=== PATIENT | female | born 1970 | race Two or more races ===

== ENCOUNTER 2018-09-26 06:59 | Day surgery (SDC) | payer OTHER ==
[~2018-09-26 06:59] MED LIST: SYNTHROID100 MCG PO; TRAMADOL HCL50 MG PO; TRIPLE ANTIBIOT15 GM TP
== END 2018-09-26 16:00 | disposition home or self-care (01) ==
LOC: CIR.AMB 06:59
DX: D17.1 Benign lipomatous neoplasm of skin and subcutaneous tissue of trunk (principal)

== ENCOUNTER 2019-05-08 18:50 | Emergency (ER) | payer OTHER ==
[~2019-05-08] VITALS: Ht 160 cm; Wt 62.6 kg
[2019-05-09] MEDS ORDERED: ZOFRAN4 MG PO (02:04)
[2019-05-09] MEDS ORDERED: PEPCID40 MG PO (02:04)
[2019-05-09] MEDS ORDERED: INTESTINEX680 M1 PO (02:04)
== END 2019-05-09 02:11 ==
LOC: ER 18:50
DX: K52.89 Other specified noninfective gastroenteritis and colitis (principal); R11.10 Vomiting, unspecified

== ENCOUNTER 2019-09-23 23:31 | Emergency (ER) | payer OTHER ==
[~2019-09-23] VITALS: Ht 157.5 cm; Wt 61.2 kg
[~2019-09-23 23:31] MED LIST changes: +INTESTINEX680 M1 PO; +PEPCID40 MG PO; +ZOFRAN4 MG PO
[2019-09-24] MEDS ORDERED: PEPCID40 MG PO (06:26)
[2019-09-24] MEDS ORDERED: PHENERGAN25 MG PO (06:26)
== END 2019-09-24 06:36 | disposition home or self-care (01) ==
LOC: ER 23:31
DX: K29.60 Other gastritis without bleeding (principal)

== ENCOUNTER 2022-08-31 08:37 | Outpatient (CLI) | payer OTHER ==
[~2022-08-31 08:37] MED LIST changes: +PHENERGAN25 MG PO
== END 2022-08-31 08:39 | disposition home or self-care (01) ==
LOC: MAMO-SONO 08:37
PROVIDERS: ATTEND Obstetrics & Gynecology
DX: N63.0 Unspecified lump in unspecified breast (principal); N64.59 Other signs and symptoms in breast; N64.9 Disorder of breast, unspecified; N94.89 Other specified conditions associated with female genital organs and menstrual cycle; R10.2 Pelvic and perineal pain; N94.0 Mittelschmerz

== ENCOUNTER 2023-09-29 10:04 | Outpatient (CLI) | payer OTHER | END 2023-09-29 10:15 | disposition home or self-care (01) | LOC: MAMO-SONO 10:04 | PROVIDERS: ATTEND Obstetrics & Gynecology | DX: N63.0 Unspecified lump in unspecified breast (principal); N64.59 Other signs and symptoms in breast; N64.9 Disorder of breast, unspecified; N94.0 Mittelschmerz; R10.2 Pelvic and perineal pain; N94.89 Other specified conditions associated with female genital organs and menstrual cycle; Z12.31 Encounter for screening mammogram for malignant neoplasm of breast ==